=== PATIENT | male | born 1990 | race Two or more races ===

== ENCOUNTER 2017-03-20 02:26 | Inpatient (IN) | payer BC ==
[~2017-03-20] VITALS: Ht 177.8 cm; Wt 86.2 kg
[2017-03-20 04:30] VITALS: BP 136/88
[2017-03-20] MEDS ORDERED: CLINDAMYCIN HC150 MG ORAL (04:57)
[2017-03-20 08:07] VITALS: BP 140/77
[2017-03-20] MEDS: cefTRIAXone 1 GM in D5W 55 ML IVPB SCH (08:35)
[2017-03-20 09:19] LABS: BASOPHILS % (AUTO) 0.7 % (0.0-2.0); EOSINOPHILS % (AUTO) 5.1 % (0.0-3.0); LYMPHOCYTES % (AUTO) 18.7 % (20.0-45.0); MEAN CORPUSCULAR HEMOGLOBIN 29.4 PG (27.0-31.0); MEAN CORPUSCULAR VOLUME 86 FL (80-99); MEAN PLATELET VOLUME 7.4 FL (6.5-10.1); MONOCYTES % (AUTO) 7.9 % (1.0-10.0); NEUTROPHILS % (AUTO) 67.5 % (45.0-75.0); PLATELET COUNT 237 K/UL (150-450); WHITE BLOOD COUNT 6.9 K/UL (4.8-10.8)
[2017-03-20 09:41] LABS: ALANINE AMINOTRANSFERASE 36 U/L (3-41); ALBUMIN/GLOBULIN RATIO 1.4 (1.0-2.7); ANION GAP 14 (5-15); ASPARTATE AMINO TRANSFERASE 20 U/L (5-40); CALCIUM 9.4 mg/dL (8.6-10.2); CARBON DIOXIDE 24 mEQ/L (20-30); CHLORIDE 101 mEQ/L (98-107); CREATININE 0.7 mg/dL (0.7-1.2); GLOMERULAR FILTRATION RATE > 60 mL/min (>60); HEMOLYSIS 0; MAGNESIUM 2.2 mg/dL (1.7-2.5); PHOSPHORUS 2.8 mg/dL (2.5-4.8); POTASSIUM 3.6 mEQ/L (3.4-4.9); SODIUM 139 mEQ/L (135-145); TOTAL PROTEIN 7.2 g/dL (6.6-8.7)
[2017-03-20] MEDS ORDERED: Vancomycin 1.5 GM/D5W 250ML IVPB ONE (10:00)
[2017-03-20 11:59] VITALS: BP 124/83
--- NOTE | 2017-03-20 12:57 | History & Physical ---
History and Physical History & Physicial Dictated for Int Med-Dr Brink no. [id number]. DUGLAS EVANS Mar 20, 2017 12:57
[2017-03-20] MEDS: Sertraline 100mg tab ORAL SCH (13:31)
[2017-03-20] MEDS: Heparin 5000 units/ml inj SUBQ SCH ×2 (13:32→21:56)
--- NOTE | 2017-03-20 13:46 | Wound Care Consultation ---
Wound Assessment Wound Assessment #1: Wound Number: #1 Wound Present on Admission: Yes New Wound: No Status Change of Wound: No Wound Location Body Site Modif: right, lower, lateral Wound Location Body Site: leg Wound Type: other Laura Test: Does not Laura Wound Thickness: Full Thickness Wound Length: 3.0 Wound Width: 2.0 Wound Depth: utd Percent of Wound Black/Brown: 100 Wound Drainage Description: Serosanguineous Wound Drainage Amount: Moderate Wound Drainage Odor: None/Absent Tissue Surrounding Wound: Indurated Wound General Appearance: Blackened, Draining, Necrotic Wound Assessment #2: Wound Number: #2 Wound Present on Admission: Yes New Wound: No Status Change of Wound: No Wound Location Body Site Modif: right, lower, anterior Wound Location Body Site: leg Wound Type: blister - open Laura Test: Does not Laura Wound Thickness: Partial Thickness Wound Length: 3.5 Wound Width: 2.5 Wound Depth: less than 0.1 Percent of Wound [place]/Red: 100 Wound Drainage Description: Serosanguineous Wound Drainage Amount: Scant Wound Drainage Odor: None/Absent Tissue Surrounding Wound: Erythemic Wound General Appearance: Reddened, Draining Wound Assessment #3: Wound Number: #3 Wound Present on Admission: Yes New Wound: No Status Change of Wound: No Wound Location Body Site Modif: right, lower, medial Wound Location Body Site: leg Wound Type: blister - open Laura Test: Does not Laura Wound Thickness: Partial Thickness Wound Length: 3.5 Wound Width: 2.5 Wound Depth: less than 0.1 Percent of Wound [place]/Red: 100 Wound Drainage Description: Serosanguineous Wound Drainage Amount: Scant Wound Drainage Odor: None/Absent Tissue Surrounding Wound: Erythemic Wound General Appearance: Reddened, Draining Wound Comment #1 Right lower lateral leg open necrotic wound. Pt stated that he had a spider bite #2 Right lower anterior leg Open blister #3 Right lower medial leg Open blister Recommendation -Right lower lateral leg open necrotic wound. Pt stated that he had a spider bite, Right lower anterior leg Open blister and Right lower medial leg Open blister Cleanse with saline, pat dry, apply Xeroform gauze, cover with bordered gauze daily and PRN soiled/dislodged -Keep clean and dry -Turn and reposition -Optimize nutrition -Offload both heels -Assess and f/u accordingly for any changes CONCEPCION GAMBOA RN Mar 20, 2017 13:46
[2017-03-20 16:11] VITALS: BP 128/79
[2017-03-20] MEDS: Vancomycin 1250mg/D5W 250ml 250 ML IVPB SCH (18:04)
--- NOTE | 2017-03-20 19:38 | Consultation ---
History of Present Illness Present Illness Allergies: Coded Allergies: LAMOTRIGINE (Verified Allergy, Unknown, 03/20/17) SULFA (SULFONAMIDE ANTIBIOTICS) (Verified Allergy, Unknown, 03/20/17) Medication History Scheduled Clindamycin Hcl* (Clindamycin Hcl*), 300 MG ORAL FOUR TIMES A DAY, (Reported) Patient History Healthcare decision maker Resuscitation status Advanced Directive on File Physical Exam Last 24 Hour Vital Signs Date Time Temp Pulse Resp B/P Pulse Ox O2 Delivery O2 Flow Rate FiO2 03/20/17 16:11 97.6 82 20 128/79 98 Room Air 03/20/17 11:59 97.0 79 20 124/83 98 Room Air 03/20/17 08:07 96.8 80 18 140/77 99 Room Air 03/20/17 04:30 96.8 75 18 136/88 98 Room Air Laboratory Tests Test 03/20/17 08:30 White Blood Count 6.9 K/UL (4.8-10.8) Red Blood Count 4.30 M/UL (4.70-6.10) L Hemoglobin 12.6 G/DL (14.2-18.0) L Hematocrit 37.2 % (42.0-52.0) L Mean Corpuscular Volume 86 FL (80-99) Mean Corpuscular Hemoglobin 29.4 PG (27.0-31.0) Mean Corpuscular Hemoglobin Concent 34.0 G/DL (32.0-36.0) Red Cell Distribution Width 13.0 % (11.6-14.8) Platelet Count 237 K/UL (150-450) Mean Platelet Volume 7.4 FL (6.5-10.1) Neutrophils (%) (Auto) 67.5 % (45.0-75.0) Lymphocytes (%) (Auto) 18.7 % (20.0-45.0) L Monocytes (%) (Auto) 7.9 % (1.0-10.0) Eosinophils (%) (Auto) 5.1 % (0.0-3.0) H Basophils (%) (Auto) 0.7 % (0.0-2.0) Sodium Level 139 mEQ/L (135-145) Potassium Level 3.6 mEQ/L (3.4-4.9) Chloride Level 101 mEQ/L (98-107) Carbon Dioxide Level 24 mEQ/L (20-30) Anion Gap 14 (5-15) Blood Urea Nitrogen 9 mg/dL (7-23) Creatinine 0.7 mg/dL (0.7-1.2) Estimat Glomerular Filtration Rate > 60 mL/min (>60) Glucose Level 85 mg/dL (74-106) Calcium Level 9.4 mg/dL (8.6-10.2) Phosphorus Level 2.8 mg/dL (2.5-4.8) Magnesium Level 2.2 mg/dL (1.7-2.5) Total Bilirubin 0.6 mg/dL (0.0-1.2) Aspartate Amino Transf (AST/SGOT) 20 U/L (5-40) Alanine Aminotransferase (ALT/SGPT) 36 U/L (3-41) Alkaline Phosphatase 113 U/L (40-129) Total Protein 7.2 g/dL (6.6-8.7) Albumin 4.3 g/dL (3.5-5.2) Globulin 2.9 g/dL Albumin/Globulin Ratio 1.4 (1.0-2.7) Height (Feet): 5 Height (Inches): 10.00 Weight (Pounds): 190 Medications Current Medications Medications (Trade) Dose Ordered Sig/Helen Route PRN Reason Start Time Stop Time Status Last Admin Dose Admin Acetaminophen (Tylenol) 650 mg Q6H PRN ORAL Pain 1-3 /Temp > 100.5 03/20/17 07:30 04/19/17 07:29 Acetaminophen/ Hydrocodone Bitart ([place] 5/325) 1 tab Q6H PRN ORAL Severe Pain (Pain Scale 7-10) 03/20/17 07:30 03/27/17 07:29 Ceftriaxone Sodium/Dextrose (Rocephin/D5W) 55 ml @ 110 mls/hr Q24H IVPB 03/20/17 09:00 03/27/17 08:59 03/20/17 08:35 Heparin Sodium (Porcine) (Heparin 5000 units/ml) 5,000 units EVERY 8 HOURS SUBQ 03/20/17 14:00 04/19/17 13:59 03/20/17 13:32 Ondansetron HCl (Zofran) 4 mg Q4H PRN IVP Nausea & Vomiting 03/20/17 07:30 04/19/17 07:29 Quetiapine Fumarate (SEROquel) 25 mg BIDLS ORAL 03/20/17 13:00 04/19/17 12:59 03/20/17 17:27 Quetiapine Fumarate 100 mg 100 mg QHS ORAL 03/20/17 21:00 04/19/17 20:59 Sertraline HCl (Zoloft) 100 mg DAILY ORAL 03/20/17 13:00 04/19/17 12:59 03/20/17 13:31 Vancomycin HCl 1 ea 1 ea DAILY PRN MISC Per rx protocol 03/20/17 07:30 04/19/17 07:29 Vancomycin HCl/ Dextrose (Vancomycin 1250mg/D5W 250ml) 250 ml @ 166.667 mls/hr Q8HR@0200,1000,1800 IVPB 03/20/17 18:00 03/25/17 17:59 03/20/17 18:04 ALBINO KUMAR Mar 20, 2017 19:38
[2017-03-20 20:00] VITALS: BP 123/85
--- NOTE | 2017-03-20 21:46 | History and Physical Report ---
DATE OF ADMISSION: 03/20/[address] Brink. CHIEF COMPLAINT: The patient is a 26-year-old male, who presents with a chief complaint of pain and swelling of the right lower leg. HISTORY OF PRESENT ILLNESS: Began on 03/15/2017. The patient states he had an area of redness and swelling on the right calf. This grew progressively over the day. The patient went to [facility] emergency room. The patient had an abscess to the right calf, which was draining on its own. The patient was given oral clindamycin and was sent home. The patient states pain and swelling of the right calf increased. The patient states area of redness was expanding. The patient presented again to [facility] on 03/19/2017. The patient was noted to fail oral clindamycin therapy. The patient was transferred to [facility] for insurance purposes. The patient is admitted for right lower extremity cellulitis and abscess. PAST MEDICAL HISTORY: Significant for bipolar depression. PAST SURGICAL HISTORY: The patient denies. CURRENT MEDICATIONS: 1. Clindamycin as above. 2. Zoloft 100 mg one tablet p.o. daily. 3. Seroquel 25 mg twice daily and 100 mg p.o. at bedtime. ALLERGIES: Sulfa and Lamictal. SOCIAL HISTORY: The patient is single and is currently unemployed. The patient admits to intravenous heroin use of 1 g daily. The patient last used heroin on 03/15/2017. The patient also admits to intravenous methamphetamine use of 0.5 g daily. The patient last used methamphetamine on 03/15/2017. The patient admits to tobacco use of one-half pack per day. The patient denies alcohol use. REVIEW OF SYSTEMS: Constitutional: The patient denies weight loss or weight gain. The patient denies fevers or chills. HEENT: The patient denies ear or throat pain. The patient denies headache. Cardiovascular: The patient denies palpitations or chest pain. Chest: The patient denies wheeze or shortness of breath. Abdomen: The patient denies nausea, vomiting, diarrhea, or constipation. Genitourinary: The patient denies dysuria or increased frequency of urination. Neuromuscular: The patient complains of right lower extremity swelling, erythema, and pain as above. The patient denies seizures or generalized weakness. PHYSICAL EXAMINATION: VITAL SIGNS: Temperature 96.8 degrees, respirations 18, pulse 75, and blood pressure 136/88. GENERAL: The patient is well-developed and well-nourished male, in no apparent distress. HEENT: Eyes, pupils are equal and responsive to light and accommodation. Extraocular movements are intact. NECK: Supple without lymphadenopathy. CHEST: Lungs are clear to auscultation bilaterally without wheezes or rales. CARDIOVASCULAR: Regular rate. S1 and S2 are normal without murmurs, rubs, or gallops. ABDOMEN: Soft, nontender, and nondistended. Positive bowel sounds. No evidence of hepatosplenomegaly. Currently, no rebound or guarding noted. EXTREMITIES: Negative for clubbing, cyanosis, or edema. Area of erythema on the right calf approximately 15 cm in diameter. There are two areas of draining abscesses on the calf. Otherwise, extremities are without clubbing, cyanosis, or edema. RECTAL: Refused. GENITALIA: Refused. NEUROLOGIC: Cranial nerves II through XII are grossly intact without focal deficits. Motor strength is 5/5 bilaterally. Deep tendon reflexes are 2+ plantar. LABORATORY STUDIES: From [place] WBC 7.9, hemoglobin 11.9, hematocrit 34.4, and platelets 319,000. Sodium 135, potassium 3.5, chloride 103, CO2 23, BUN 10, creatinine 0.72, and glucose 91. ASSESSMENT: This is a 26-year-old male. 1. Abscess to the right calf. 2. Right lower extremity cellulitis. 3. Opiate dependence. 4. . 5. Methamphetamine dependence. 6. Bipolar depression. TREATMENT: 1. Abscess/cellulitis to the right lower extremity. The patient has been started empirically on intravenous ceftriaxone and vancomycin. The patient will require coverage for methicillin-resistant Staphylococcus aureus as the patient has a history of intravenous drug use in the recent past. Wound cultures are pending. 2. Bipolar depression. The patient has been placed on Zoloft and Seroquel as above. 3. Opiate dependence/withdrawal. The patient is requesting Subutex therapy at this time. Vikash Lane M.D. DR: JARON JOB#: [id number] CC:
[2017-03-21] VITALS: BP 118/79
[2017-03-21] MEDS: Vancomycin 1250mg/D5W 250ml 250 ML IVPB SCH ×3 (01:48→17:20)
[2017-03-21 04:00] VITALS: BP 130/72
[2017-03-21] MEDS: Heparin 5000 units/ml inj SUBQ SCH ×3 (05:26→21:12)
[2017-03-21 07:14] LABS: BASOPHILS % (AUTO) 1.2 % (0.0-2.0); EOSINOPHILS % (AUTO) 8.5 % (0.0-3.0); MEAN CORPUSCULAR HEMOGLOBIN 29.1 PG (27.0-31.0); MEAN CORPUSCULAR HGB CONC 33.7 G/DL (32.0-36.0); MEAN CORPUSCULAR VOLUME 87 FL (80-99); MEAN PLATELET VOLUME 7.4 FL (6.5-10.1); MONOCYTES % (AUTO) 9.6 % (1.0-10.0); NEUTROPHILS % (AUTO) 49.7 % (45.0-75.0); PLATELET COUNT 266 K/UL (150-450); RED BLOOD COUNT 4.47 M/UL (4.70-6.10); RED CELL DISTRIBUTION WIDTH 13.2 % (11.6-14.8); WHITE BLOOD COUNT 5.7 K/UL (4.8-10.8)
[2017-03-21 07:41] LABS: ANION GAP 12 (5-15); CALCIUM 9.4 mg/dL (8.6-10.2); CARBON DIOXIDE 24 mEQ/L (20-30); CHLORIDE 104 mEQ/L (98-107); CREATININE 0.8 mg/dL (0.7-1.2); GLOMERULAR FILTRATION RATE > 60 mL/min (>60); HEMOLYSIS 4; POTASSIUM 3.6 mEQ/L (3.4-4.9); SODIUM 140 mEQ/L (135-145)
[2017-03-21 08:00] VITALS: BP 128/68
[2017-03-21] MEDS: Sertraline 100mg tab ORAL SCH (09:04)
[2017-03-21] MEDS: cefTRIAXone 1 GM in D5W 55 ML IVPB SCH (09:04)
[2017-03-21 12:24] VITALS: BP 125/62
[2017-03-21 15:51] VITALS: BP 131/64
[2017-03-21] MEDS ORDERED: Tubing IV Secondary IV ONE (17:16)
[2017-03-21] MEDS ORDERED: NS 275ml ONE (17:16)
--- NOTE | 2017-03-21 19:34 | Internal Med Progress Note ---
Subjective Date of Service: Mar 21, 2017 Physician Name Duglas Evans Attending Physician Dave Brink MD Current Medications Medications (Trade) Dose Ordered Sig/Helen Route PRN Reason Start Time Stop Time Status Last Admin Dose Admin Acetaminophen (Tylenol) 650 mg Q6H PRN ORAL Pain 1-3 /Temp > 100.5 03/20/17 07:30 04/19/17 07:29 Acetaminophen/ Hydrocodone Bitart ([place] 5/325) 1 tab Q6H PRN ORAL Severe Pain (Pain Scale 7-10) 03/20/17 07:30 03/27/17 07:29 Ceftriaxone Sodium/Dextrose (Rocephin/D5W) 55 ml @ 110 mls/hr Q24H IVPB 03/20/17 09:00 03/27/17 08:59 03/21/17 09:04 Heparin Sodium (Porcine) (Heparin 5000 units/ml) 5,000 units EVERY 8 HOURS SUBQ 03/20/17 14:00 04/19/17 13:59 03/21/17 13:04 Ondansetron HCl (Zofran) 4 mg Q4H PRN IVP Nausea & Vomiting 03/20/17 07:30 04/19/17 07:29 Quetiapine Fumarate (SEROquel) 25 mg BIDLS ORAL 03/20/17 13:00 04/19/17 12:59 03/21/17 17:19 Quetiapine Fumarate 100 mg 100 mg QHS ORAL 03/20/17 21:00 04/19/17 20:59 03/20/17 20:51 Sertraline HCl (Zoloft) 100 mg DAILY ORAL 03/20/17 13:00 04/19/17 12:59 03/21/17 09:04 Vancomycin HCl 1 ea 1 ea DAILY PRN MISC Per rx protocol 03/20/17 07:30 04/19/17 07:29 Vancomycin HCl/ Dextrose (Vancomycin 1250mg/D5W 250ml) 250 ml @ 166.667 mls/hr Q8HR@0200,1000,1800 IVPB 03/20/17 18:00 03/25/17 17:59 03/21/17 17:20 Allergies: Coded Allergies: LAMOTRIGINE (Verified Allergy, Unknown, 03/20/17) SULFA (SULFONAMIDE ANTIBIOTICS) (Verified Allergy, Unknown, 03/20/17) ROS Limited/Unobtainable: No Constitutional: Reports: no symptoms HEENT: Reports: no symptoms Cardiovascular: Reports: no symptoms Respiratory: Reports: no symptoms Gastrointestinal/Abdominal: Reports: no symptoms Genitourinary: Reports: no symptoms Neurologic/Psychiatric: Reports: no symptoms Subjective 26 YO M admitted with abscess/cellulitis right calf. Cover for Int Дмитрий-Dr Brink. Objective Last Vital Signs Date Time Temp Pulse Resp B/P Pulse Ox O2 Delivery O2 Flow Rate FiO2 03/21/17 15:51 98.2 72 21 131/64 100 Room Air General Appearance: WD/WN, no apparent distress, alert EENT: PERRL/EOMI, normal ENT inspection, TMs normal Neck: non-tender, normal alignment, supple, normal inspection Cardiovascular: normal peripheral pulses, normal rate, regular rhythm, no gallop/murmur, no JVD Respiratory/Chest: chest wall non-tender, lungs clear, normal breath sounds, no respiratory distress, no accessory muscle use Abdomen: normal bowel sounds, non tender, soft, no organomegaly, no mass 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 Skin: normal pigmentation, warm/dry, other - erythema right calf Laboratory Tests Test 03/21/17 06:10 03/21/17 08:45 White Blood Count 5.7 K/UL (4.8-10.8) Red Blood Count 4.47 M/UL (4.70-6.10) L Hemoglobin 13.0 G/DL (14.2-18.0) L Hematocrit 38.7 % (42.0-52.0) L Mean Corpuscular Volume 87 FL (80-99) Mean Corpuscular Hemoglobin 29.1 PG (27.0-31.0) Mean Corpuscular Hemoglobin Concent 33.7 G/DL (32.0-36.0) Red Cell Distribution Width 13.2 % (11.6-14.8) Platelet Count 266 K/UL (150-450) Mean Platelet Volume 7.4 FL (6.5-10.1) Neutrophils (%) (Auto) 49.7 % (45.0-75.0) Lymphocytes (%) (Auto) 31.0 % (20.0-45.0) Monocytes (%) (Auto) 9.6 % (1.0-10.0) Eosinophils (%) (Auto) 8.5 % (0.0-3.0) H Basophils (%) (Auto) 1.2 % (0.0-2.0) Sodium Level 140 mEQ/L (135-145) Potassium Level 3.6 mEQ/L (3.4-4.9) Chloride Level 104 mEQ/L (98-107) Carbon Dioxide Level 24 mEQ/L (20-30) Anion Gap 12 (5-15) Blood Urea Nitrogen 8 mg/dL (7-23) Creatinine 0.8 mg/dL (0.7-1.2) Estimat Glomerular Filtration Rate > 60 mL/min (>60) Glucose Level 88 mg/dL (74-106) Calcium Level 9.4 mg/dL (8.6-10.2) Vancomycin Level Trough 10.0 ug/mL (5.0-12.0) Microbiology Date/Time Source Procedure Growth Status 03/20/17 04:30 Leg Right Gram Stain - Final Resulted 03/20/17 04:30 Wound Culture - Preliminary Staphylococcus Aureus Resulted Intake and Output 03/20/17 03/21/17 19:00 07:00 Intake Total 1315 ml 500.000 ml Balance 1315 ml 500.000 ml Intake Oral 1010 ml IV Total 305 ml 500.000 ml # Voids 3 2 Assessment/Plan Problem List: (1) Abscess of right lower leg Assessment & Plan: Staph aureus. Await sensitivities. Cont vanco and ceftriaxone. (2) Opiate dependence (3) Opiate withdrawal Assessment & Plan: Await subutex approval by pharmacy (4) Methamphetamine abuse (5) Bipolar depression Assessment & Plan: Continue zoloft and seroquel. (6) Cellulitis of right leg Assessment & Plan: Cont vanco and ceftriaxone. Status: progressing DUGLAS EVANS Mar 21, 2017 19:34
--- NOTE | 2017-03-21 19:41 | Pulmonology Progress Note ---
Assessment/Plan Problems: (1) Abscess of right lower leg (2) Cellulitis of right leg (3) Methamphetamine abuse (4) Opiate withdrawal (5) Bipolar depression Assessment/Plan iv abx wound care symptomatic treatment f/u ID recommendations Subjective ROS Limited/Unobtainable: No Allergies: Coded Allergies: LAMOTRIGINE (Verified Allergy, Unknown, 03/20/17) SULFA (SULFONAMIDE ANTIBIOTICS) (Verified Allergy, Unknown, 03/20/17) Objective Last 24 Hour Vital Signs Date Time Temp Pulse Resp B/P Pulse Ox O2 Delivery O2 Flow Rate FiO2 03/21/17 15:51 98.2 72 21 131/64 100 Room Air 03/21/17 12:24 97.8 70 18 125/62 100 Room Air 03/21/17 08:00 98.0 70 18 128/68 100 Room Air 03/21/17 04:00 97.3 62 20 130/72 96 03/21/17 00:00 98.4 71 18 118/79 100 Room Air 03/20/17 20:00 98.1 67 20 123/85 99 Room Air Intake and Output 03/20/17 03/21/17 19:00 07:00 Intake Total 1315 ml 500.000 ml Balance 1315 ml 500.000 ml Intake Oral 1010 ml IV Total 305 ml 500.000 ml # Voids 3 2 General Appearance: WD/WN HEENT: normocephalic, atraumatic Respiratory/Chest: chest wall non-tender, lungs clear Cardiovascular: normal peripheral pulses, normal rate Abdomen: normal bowel sounds, soft, non tender Genitourinary: normal external genitalia Extremities: no cyanosis Skin: no rash 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 Microbiology Date/Time Source Procedure Growth Status 03/20/17 04:30 Leg Right Gram Stain - Final Resulted 03/20/17 04:30 Wound Culture - Preliminary Staphylococcus Aureus Resulted Laboratory Tests 03/21/17 06:10: White Blood Count 5.7, Red Blood Count 4.47L, Hemoglobin 13.0L, Hematocrit 38.7L , Mean Corpuscular Volume 87, Mean Corpuscular Hemoglobin 29.1, Mean Corpuscular Hemoglobin Concent 33.7, Red Cell Distribution Width 13.2, Platelet Count 266, Mean Platelet Volume 7.4, Neutrophils (%) (Auto) 49.7, Lymphocytes (% ) (Auto) 31.0, Monocytes (%) (Auto) 9.6, Eosinophils (%) (Auto) 8.5H, Basophils (%) (Auto) 1.2, Sodium Level 140, Potassium Level 3.6, Chloride Level 104, Carbon Dioxide Level 24, Anion Gap 12, Blood Urea Nitrogen 8, Creatinine 0.8, Estimat Glomerular Filtration Rate > 60, Glucose Level 88, Calcium Level 9.4 03/21/17 08:45: Vancomycin Level Trough 10.0 Current Medications Medications (Trade) Dose Ordered Sig/Helen Route PRN Reason Start Time Stop Time Status Last Admin Dose Admin Acetaminophen (Tylenol) 650 mg Q6H PRN ORAL Pain 1-3 /Temp > 100.5 03/20/17 07:30 04/19/17 07:29 Acetaminophen/ Hydrocodone Bitart ([place] 5/325) 1 tab Q6H PRN ORAL Severe Pain (Pain Scale 7-10) 03/20/17 07:30 03/27/17 07:29 Ceftriaxone Sodium/Dextrose (Rocephin/D5W) 55 ml @ 110 mls/hr Q24H IVPB 03/20/17 09:00 03/27/17 08:59 03/21/17 09:04 Heparin Sodium (Porcine) (Heparin 5000 units/ml) 5,000 units EVERY 8 HOURS SUBQ 03/20/17 14:00 04/19/17 13:59 03/21/17 13:04 Ondansetron HCl (Zofran) 4 mg Q4H PRN IVP Nausea & Vomiting 03/20/17 07:30 04/19/17 07:29 Quetiapine Fumarate (SEROquel) 25 mg BIDLS ORAL 03/20/17 13:00 04/19/17 12:59 03/21/17 17:19 Quetiapine Fumarate 100 mg 100 mg QHS ORAL 03/20/17 21:00 04/19/17 20:59 03/20/17 20:51 Sertraline HCl (Zoloft) 100 mg DAILY ORAL 03/20/17 13:00 04/19/17 12:59 03/21/17 09:04 Vancomycin HCl 1 ea 1 ea DAILY PRN MISC Per rx protocol 03/20/17 07:30 04/19/17 07:29 Vancomycin HCl/ Dextrose (Vancomycin 1250mg/D5W 250ml) 250 ml @ 166.667 mls/hr Q8HR@0200,1000,1800 IVPB 03/20/17 18:00 03/25/17 17:59 03/21/17 17:20 ALBINO KUMAR Mar 21, 2017 19:41
[2017-03-21 20:30] VITALS: BP 128/73
[2017-03-22 00:22] VITALS: BP 128/72
[2017-03-22] MEDS: Vancomycin 1250mg/D5W 250ml 250 ML IVPB SCH ×3 (02:09→17:37)
[2017-03-22 04:22] VITALS: BP 130/85
[2017-03-22] MEDS: Heparin 5000 units/ml inj SUBQ SCH ×3 (05:49→21:39)
[2017-03-22 07:46] LABS: ANION GAP 12 (5-15); CALCIUM 9.1 mg/dL (8.6-10.2); CARBON DIOXIDE 23 mEQ/L (20-30); CHLORIDE 105 mEQ/L (98-107); CREATININE 0.7 mg/dL (0.7-1.2); GLOMERULAR FILTRATION RATE > 60 mL/min (>60); HEMOLYSIS 1; POTASSIUM 3.6 mEQ/L (3.4-4.9); SODIUM 140 mEQ/L (135-145)
[2017-03-22 08:04] LABS: BASOPHILS % (AUTO) 1.9 % (0.0-2.0); EOSINOPHILS % (AUTO) 6.8 % (0.0-3.0); LYMPHOCYTES % (AUTO) 31.1 % (20.0-45.0); MEAN CORPUSCULAR HEMOGLOBIN 28.9 PG (27.0-31.0); MEAN CORPUSCULAR HGB CONC 32.9 G/DL (32.0-36.0); MEAN CORPUSCULAR VOLUME 88 FL (80-99); MEAN PLATELET VOLUME 7.4 FL (6.5-10.1); MONOCYTES % (AUTO) 9.2 % (1.0-10.0); PLATELET COUNT 283 K/UL (150-450); RED BLOOD COUNT 4.52 M/UL (4.70-6.10); RED CELL DISTRIBUTION WIDTH 13.4 % (11.6-14.8); WHITE BLOOD COUNT 6.3 K/UL (4.8-10.8)
[2017-03-22] MEDS: Sertraline 100mg tab ORAL SCH (08:25)
[2017-03-22] MEDS: cefTRIAXone 1 GM in D5W 55 ML IVPB SCH (08:25)
[2017-03-22 08:43] VITALS: BP 131/77
--- NOTE | 2017-03-22 11:40 | Consultation ---
Consult Note Consult Note ID CONSULT: Dict# [id number] Assessment/Plan ASSESSMENT: 26 y/o male with: // RLE abscess / cellulitis - improving, WCx S.aureus ( sensi pending ) - SP spontaneous drainage, failed PO clindamycin - spontaneous onset per pt. Denies injection, bite or trauma - doppler neg DVT // Afebrile without leukocytosis // Polysubstance abuse - IV heroin, meth, tob // Bipolar disorder // Sulfa allergy // Full Code PLAN: - continue IV vancomycin, rocephin d# 3 / 7 pending cultures, ok to DC on PO doxy if MRSA or PO keflex if MSSA - check HIV, hepatitis panel - f/u cultures - monitor CBC, temperatures - wound care Thanks! Will follow JULIUS LORD Mar 22, 2017 11:40
[2017-03-22 12:00] VITALS: BP 145/87
[2017-03-22 16:00] VITALS: BP 130/76
[2017-03-22] MEDS: Norco 5mg/325mg tab ORAL PRN (16:29)
--- NOTE | 2017-03-22 18:20 | Internal Med Progress Note ---
Subjective Date of Service: Mar 22, 2017 Physician Name Vikash Evans Attending Physician Dave Brink MD Current Medications Medications (Trade) Dose Ordered Sig/Helen Route PRN Reason Start Time Stop Time Status Last Admin Dose Admin Acetaminophen (Tylenol) 650 mg Q6H PRN ORAL Pain 1-3 /Temp > 100.5 03/20/17 07:30 04/19/17 07:29 Acetaminophen/ Hydrocodone Bitart ([place] 5/325) 1 tab Q6H PRN ORAL Severe Pain (Pain Scale 7-10) 03/20/17 07:30 03/27/17 07:29 03/22/17 16:29 Ceftriaxone Sodium/Dextrose (Rocephin/D5W) 55 ml @ 110 mls/hr Q24H IVPB 03/20/17 09:00 03/27/17 08:59 03/22/17 08:25 Heparin Sodium (Porcine) (Heparin 5000 units/ml) 5,000 units EVERY 8 HOURS SUBQ 03/20/17 14:00 04/19/17 13:59 03/22/17 14:15 Ondansetron HCl (Zofran) 4 mg Q4H PRN IVP Nausea & Vomiting 03/20/17 07:30 04/19/17 07:29 Quetiapine Fumarate (SEROquel) 25 mg BIDLS ORAL 03/20/17 13:00 04/19/17 12:59 03/22/17 16:32 Quetiapine Fumarate 100 mg 100 mg QHS ORAL 03/20/17 21:00 04/19/17 20:59 03/21/17 21:20 Sertraline HCl (Zoloft) 100 mg DAILY ORAL 03/20/17 13:00 04/19/17 12:59 03/22/17 08:25 Vancomycin HCl 1 ea 1 ea DAILY PRN MISC Per rx protocol 03/20/17 07:30 04/19/17 07:29 Vancomycin HCl/ Dextrose (Vancomycin 1250mg/D5W 250ml) 250 ml @ 166.667 mls/hr Q8HR@0200,1000,1800 IVPB 03/20/17 18:00 03/25/17 17:59 03/22/17 17:37 Allergies: Coded Allergies: LAMOTRIGINE (Verified Allergy, Unknown, 03/20/17) SULFA (SULFONAMIDE ANTIBIOTICS) (Verified Allergy, Unknown, 03/20/17) ROS Limited/Unobtainable: No Constitutional: Reports: chills, fever HEENT: Reports: no symptoms Cardiovascular: Reports: no symptoms Respiratory: Reports: no symptoms Gastrointestinal/Abdominal: Reports: diarrhea, nausea, vomiting Genitourinary: Reports: no symptoms Neurologic/Psychiatric: Reports: no symptoms Subjective 26 YO M admitted with abscess/cellulitis right calf. Cover for Int Med-Dr Brink.. C/O opiate withdrawl: Fever, Chills,nausea,vomiting, diarrhea Objective Last Vital Signs Date Time Temp Pulse Resp B/P Pulse Ox O2 Delivery O2 Flow Rate FiO2 03/22/17 16:00 97.3 68 20 130/76 96 Room Air Laboratory Tests Test 03/22/17 04:00 03/22/17 06:10 White Blood Count 6.3 K/UL (4.8-10.8) Red Blood Count 4.52 M/UL (4.70-6.10) L Hemoglobin 13.0 G/DL (14.2-18.0) L Hematocrit 39.7 % (42.0-52.0) L Mean Corpuscular Volume 88 FL (80-99) Mean Corpuscular Hemoglobin 28.9 PG (27.0-31.0) Mean Corpuscular Hemoglobin Concent 32.9 G/DL (32.0-36.0) Red Cell Distribution Width 13.4 % (11.6-14.8) Platelet Count 283 K/UL (150-450) Mean Platelet Volume 7.4 FL (6.5-10.1) Neutrophils (%) (Auto) 51.0 % (45.0-75.0) Lymphocytes (%) (Auto) 31.1 % (20.0-45.0) Monocytes (%) (Auto) 9.2 % (1.0-10.0) Eosinophils (%) (Auto) 6.8 % (0.0-3.0) H Basophils (%) (Auto) 1.9 % (0.0-2.0) Sodium Level 140 mEQ/L (135-145) Potassium Level 3.6 mEQ/L (3.4-4.9) Chloride Level 105 mEQ/L (98-107) Carbon Dioxide Level 23 mEQ/L (20-30) Anion Gap 12 (5-15) Blood Urea Nitrogen 9 mg/dL (7-23) Creatinine 0.7 mg/dL (0.7-1.2) Estimat Glomerular Filtration Rate > 60 mL/min (>60) Glucose Level 80 mg/dL (74-106) Calcium Level 9.1 mg/dL (8.6-10.2) Hepatitis B Surface Antigen Pending Hepatitis B Surface Antibody Pending Hepatitis B Core Total Antibody Pending Hepatitis C Antibody Pending HIV (1&2) Antibody Rapid Negative (NEGATIVE) Microbiology Date/Time Source Procedure Growth Status 03/20/17 08:45 Blood Blood Culture - Preliminary NO GROWTH AFTER 24 HOURS Resulted 03/20/17 08:30 Blood Blood Culture - Preliminary NO GROWTH AFTER 24 HOURS Resulted 03/20/17 04:30 Leg Right Gram Stain - Final Resulted 03/20/17 04:30 Wound Culture - Preliminary Staphylococcus Aureus - Mrsa Resulted Intake and Output 03/21/17 03/22/17 19:00 07:00 Intake Total 1358.000 ml 240 ml Balance 1358.000 ml 240 ml Intake Oral 800 ml 240 ml IV Total 558.000 ml # Voids 3 1 # Bowel Movements 1 Objective General Appearance: WD/WN, no apparent distress, alert EENT: PERRL/EOMI, normal ENT inspection, TMs normal Neck: non-tender, normal alignment, supple, normal inspection Cardiovascular: normal peripheral pulses, normal rate, regular rhythm, no gallop/murmur, no JVD Respiratory/Chest: chest wall non-tender, lungs clear, normal breath sounds, no respiratory distress, no accessory muscle use Abdomen: normal bowel sounds, non tender, soft, no organomegaly, no mass 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 Await sensitivities. Cont vanco and ceftriaxone. (2) Opiate dependence (3) Opiate withdrawal Assessment & Plan: Start prn phenobarbital; Await subutex approval by pharmacy (4) Methamphetamine abuse (5) Bipolar depression Assessment & Plan: Continue zoloft and seroquel. (6) Cellulitis of right leg Assessment & Plan: Cont vanco and ceftriaxone. Status: progressing Assessment/Plan Transfer to [facility] detox when bed available. VIKASH EVANS Mar 22, 2017 18:20
[2017-03-22] MEDS ORDERED: PHENobarbital 32.4mg tab ORAL PRN (18:30)
[2017-03-22 20:00] VITALS: BP 136/77
--- NOTE | 2017-03-22 20:18 | Pulmonology Progress Note ---
Assessment/Plan Problems: (1) Abscess of right lower leg (2) Opiate dependence (3) Bipolar depression (4) Opiate withdrawal Assessment/Plan improving IV abx wound care f/u electrolytes Subjective ROS Limited/Unobtainable: No Interval Events: feeling better Allergies: Coded Allergies: LAMOTRIGINE (Verified Allergy, Unknown, 03/20/17) SULFA (SULFONAMIDE ANTIBIOTICS) (Verified Allergy, Unknown, 03/20/17) Objective Last 24 Hour Vital Signs Date Time Temp Pulse Resp B/P Pulse Ox O2 Delivery O2 Flow Rate FiO2 03/22/17 16:00 97.3 68 20 130/76 96 Room Air 03/22/17 12:00 97.9 84 19 145/87 95 Room Air 03/22/17 08:43 97.5 69 20 131/77 97 Room Air 03/22/17 04:22 97.9 70 19 130/85 96 Room Air 03/22/17 00:22 98.1 68 18 128/72 97 Room Air 03/21/17 20:30 97.9 66 19 128/73 97 Room Air Intake and Output 03/21/17 03/22/17 19:00 07:00 Intake Total 1358.000 ml 240 ml Balance 1358.000 ml 240 ml Intake Oral 800 ml 240 ml IV Total 558.000 ml # Voids 3 1 # Bowel Movements 1 Objective General Appearance: WD/WN HEENT: normocephalic Respiratory/Chest: chest wall non-tender, lungs clear Breasts: no masses Cardiovascular: normal peripheral pulses Abdomen: normal bowel sounds, soft, non tender Genitourinary: normal external genitalia Skin: no rash Microbiology Date/Time Source Procedure Growth Status 03/20/17 08:45 Blood Blood Culture - Preliminary NO GROWTH AFTER 24 HOURS Resulted 03/20/17 08:30 Blood Blood Culture - Preliminary NO GROWTH AFTER 24 HOURS Resulted 03/20/17 04:30 Leg Right Gram Stain - Final Resulted 03/20/17 04:30 Wound Culture - Preliminary Staphylococcus Aureus - Mrsa Resulted Laboratory Tests 03/22/17 04:00: White Blood Count 6.3, Red Blood Count 4.52L, Hemoglobin 13.0L, Hematocrit 39.7L , Mean Corpuscular Volume 88, Mean Corpuscular Hemoglobin 28.9, Mean Corpuscular Hemoglobin Concent 32.9, Red Cell Distribution Width 13.4, Platelet Count 283, Mean Platelet Volume 7.4, Neutrophils (%) (Auto) 51.0, Lymphocytes (% ) (Auto) 31.1, Monocytes (%) (Auto) 9.2, Eosinophils (%) (Auto) 6.8H, Basophils (%) (Auto) 1.9 03/22/17 06:10: Sodium Level 140, Potassium Level 3.6, Chloride Level 105, Carbon Dioxide Level 23, Anion Gap 12, Blood Urea Nitrogen 9, Creatinine 0.7, Estimat Glomerular Filtration Rate > 60, Glucose Level 80, Calcium Level 9.1, Hepatitis B Surface Antigen [Pending], Hepatitis B Surface Antibody [Pending], Hepatitis B Core Total Antibody [Pending], Hepatitis C Antibody [Pending], HIV (1&2) Antibody Rapid Negative Current Medications Medications (Trade) Dose Ordered Sig/Helen Route PRN Reason Start Time Stop Time Status Last Admin Dose Admin Acetaminophen (Tylenol) 650 mg Q6H PRN ORAL Pain 1-3 /Temp > 100.5 03/20/17 07:30 04/19/17 07:29 Acetaminophen/ Hydrocodone Bitart ([place] 5/325) 1 tab Q6H PRN ORAL Severe Pain (Pain Scale 7-10) 03/20/17 07:30 03/27/17 07:29 03/22/17 16:29 Ceftriaxone Sodium/Dextrose (Rocephin/D5W) 55 ml @ 110 mls/hr Q24H IVPB 03/20/17 09:00 03/27/17 08:59 03/22/17 08:25 Heparin Sodium (Porcine) (Heparin 5000 units/ml) 5,000 units EVERY 8 HOURS SUBQ 03/20/17 14:00 04/19/17 13:59 03/22/17 14:15 Ondansetron HCl (Zofran) 4 mg Q4H PRN IVP Nausea & Vomiting 03/20/17 07:30 04/19/17 07:29 Phenobarbital (PHENobarbital) 32.4 mg Q4H PRN ORAL Restlessness 03/22/17 18:30 04/21/17 18:29 Quetiapine Fumarate (SEROquel) 25 mg BIDLS ORAL 03/20/17 13:00 04/19/17 12:59 03/22/17 16:32 Quetiapine Fumarate 100 mg 100 mg QHS ORAL 03/20/17 21:00 04/19/17 20:59 03/21/17 21:20 Sertraline HCl (Zoloft) 100 mg DAILY ORAL 03/20/17 13:00 04/19/17 12:59 03/22/17 08:25 Vancomycin HCl 1 ea 1 ea DAILY PRN MISC Per rx protocol 03/20/17 07:30 04/19/17 07:29 Vancomycin HCl/ Dextrose (Vancomycin 1250mg/D5W 250ml) 250 ml @ 166.667 mls/hr Q8HR@0200,1000,1800 IVPB 03/20/17 18:00 03/25/17 17:59 03/22/17 17:37 ALBINO KUMAR Mar 22, 2017 20:18
--- NOTE | 2017-03-22 22:16 | Consultation ---
DATE OF CONSULTATION: 03/22/2017 INFECTIOUS DISEASE CONSULTATION REQUESTING PHYSICIAN: Dave Brink M.D. REASON FOR CONSULTATION: Right leg abscess and cellulitis. HISTORY OF PRESENT ILLNESS: This is a 26-year-old male IV drug abuser, transferred from [place] on 03/20/2017 for ongoing treatment of right leg cellulitis and abscess. The patient originally presented to [place] on 03/15/2017 with right calf abscess status post spontaneous drainage. The patient denied bite, trauma and injection. He was discharged on oral clindamycin. The patient subsequently re-presented on 03/19/2017 with worsening and is now transferred to [facility] for ongoing care. He has been receiving IV vancomycin and Rocephin. He has been afebrile without leukocytosis. The wound cultures growing Staph aureus and sensitivities are pending. A Doppler ultrasound was negative for DVT. ID now consulted to assist in management. PAST MEDICAL HISTORY: Bipolar disorder. PAST SURGICAL HISTORY: None. MEDICATIONS: 1. Vancomycin. 2. Rocephin. 3. Seroquel. 4. Zoloft. 5. Subcutaneous heparin. ALLERGIES: 1. Sulfa. 2. Lamotrigine. SOCIAL HISTORY: The patient smokes half a pack a day and abuses IV heroin and methamphetamines. FAMILY HISTORY: Noncontributory. REVIEW OF SYSTEMS: As per history of present illness. Ten systems reviewed and all pertinent positives and negatives noted. PHYSICAL EXAMINATION: GENERAL: No apparent distress. Nontoxic appearing. VITAL SIGNS: Maximum temperature 98.4 degrees, blood pressure 131/77, heart rate in the 70s, respiratory rate 20, and saturating 97% on room air. CARDIOVASCULAR: Regular rate and rhythm. No murmurs. PULMONARY: Clear to auscultation bilaterally. ABDOMEN: Bowel sounds present. Soft, nondistended, and nontender. EXTREMITIES: No edema. Right calf ulcer with minimal induration, but no significant drainage. NEUROLOGICAL: Alert and oriented x3. Nonfocal. LABORATORY AND DIAGNOSTIC DATA: White blood cell count 6.3, hemoglobin 13 and platelets 287,000. Sodium 140, potassium 3.6, chloride 105, bicarbonate 23, BUN 9, and creatinine 0.7. Liver function tests within normal limits. Microbiology, 1. On 03/20/2017, blood culture no growth to date. 2. On 03/20/2017, wound culture 4+ staph aureus and sensitivity is pending. Imaging, 03/20/2017 bilateral lower extremity Doppler ultrasound negative for DVT. ASSESSMENT: 1. Right lower extremity abscess and cellulitis, now improving on IV antibiotics. Wound cultures growing Staph aureus with sensitivity pending. The patient had spontaneous drainage and failed oral clindamycin. The patient denies injection, bite or trauma. Doppler is negative for DVT. 2. Afebrile without leukocytosis. 3. Polysubstance abuse including intravenous heroin, intravenous methamphetamine and tobacco. 4. Bipolar disorder. 5. Sulfa allergies. 6. Full Code. PLAN: 1. Continue IV vancomycin and Rocephin day #3 of 7 pending cultures and okay to discharge on oral doxycycline if culture is methicillin resistant Staphylococcus aureus or oral Keflex if culture is methicillin-sensitive Staphylococcus aureus. 2. Check HIV and hepatitis panel. 3. Followup cultures. 4. Monitor CBC and temperatures. 5. Wound care. Thank you. We will follow. Cayetano Kohli M.D. DR: NADINE JOB#: [id number] CC: Sotero Goncalves M.D. Arash Alborzi, M.D
[2017-03-23] VITALS: BP 122/62
[2017-03-23] MEDS: Norco 5mg/325mg tab ORAL PRN ×3 (00:55→15:54)
[2017-03-23] MEDS: Vancomycin 1250mg/D5W 250ml 250 ML IVPB SCH ×4 (02:48→18:58)
[2017-03-23 04:00] VITALS: BP 120/69
[2017-03-23] MEDS: Heparin 5000 units/ml inj SUBQ SCH ×3 (05:36→20:58)
[2017-03-23 07:33] LABS: BASOPHILS % (AUTO) 1.4 % (0.0-2.0); EOSINOPHILS % (AUTO) 6.1 % (0.0-3.0); LYMPHOCYTES % (AUTO) 36.7 % (20.0-45.0); MEAN CORPUSCULAR HEMOGLOBIN 29.9 PG (27.0-31.0); MEAN CORPUSCULAR HGB CONC 34.1 G/DL (32.0-36.0); MEAN CORPUSCULAR VOLUME 88 FL (80-99); MEAN PLATELET VOLUME 7.2 FL (6.5-10.1); MONOCYTES % (AUTO) 8.1 % (1.0-10.0); NEUTROPHILS % (AUTO) 47.7 % (45.0-75.0); PLATELET COUNT 329 K/UL (150-450); RED BLOOD COUNT 4.48 M/UL (4.70-6.10); RED CELL DISTRIBUTION WIDTH 13.3 % (11.6-14.8); WHITE BLOOD COUNT 6.3 K/UL (4.8-10.8)
[2017-03-23 07:53] LABS: ANION GAP 12 (5-15); CALCIUM 8.9 mg/dL (8.6-10.2); CARBON DIOXIDE 23 mEQ/L (20-30); CHLORIDE 103 mEQ/L (98-107); CREATININE 0.7 mg/dL (0.7-1.2); GLOMERULAR FILTRATION RATE > 60 mL/min (>60); HEMOLYSIS 3; POTASSIUM 3.4 mEQ/L (3.4-4.9); SODIUM 138 mEQ/L (135-145)
[2017-03-23 08:59] VITALS: BP 127/77
[2017-03-23] MEDS: Sertraline 100mg tab ORAL SCH (09:21)
[2017-03-23] MEDS: cefTRIAXone 1 GM in D5W 55 ML IVPB SCH (09:21)
[2017-03-23 12:40] VITALS: BP 127/60
[2017-03-23 13:13] LABS: HEP B CORE AB TOTAL Negative (Negative)
[2017-03-23 16:30] VITALS: BP 133/77
[2017-03-23] MEDS ORDERED: NS 275ml ONE (16:30)
--- NOTE | 2017-03-23 16:34 | Pulmonology Progress Note ---
Assessment/Plan Problems: (1) Cellulitis of right leg (2) Abscess of right lower leg (3) Opiate withdrawal Assessment/Plan improving wound care IV abx check cultures dc planning Subjective Interval Events: improivng Allergies: Coded Allergies: LAMOTRIGINE (Verified Allergy, Unknown, 03/20/17) SULFA (SULFONAMIDE ANTIBIOTICS) (Verified Allergy, Unknown, 03/20/17) Objective Last 24 Hour Vital Signs Date Time Temp Pulse Resp B/P Pulse Ox O2 Delivery O2 Flow Rate FiO2 03/23/17 16:30 97.9 70 20 133/77 97 Room Air 03/23/17 12:40 97.0 82 20 127/60 97 Room Air 03/23/17 10:20 97.3 03/23/17 08:59 97.3 70 20 127/77 98 Room Air 03/23/17 04:00 97.0 60 20 120/69 96 Room Air 03/23/17 00:00 97.2 62 18 122/62 98 Room Air 03/22/17 20:00 97.9 60 20 136/77 96 Room Air Intake and Output 03/22/17 03/23/17 19:00 07:00 Intake Total 711.667 ml Balance 711.667 ml Intake Oral 240 ml IV Total 471.667 ml # Voids 2 # Bowel Movements 1 Objective General Appearance: WD/WN HEENT: normocephalic Respiratory/Chest: chest wall non-tender, lungs clear Breasts: no masses Cardiovascular: normal peripheral pulses Abdomen: normal bowel sounds, soft, non tender Genitourinary: normal external genitalia Skin: no rash Laboratory Tests 03/23/17 04:30: White Blood Count 6.3, Red Blood Count 4.48L, Hemoglobin 13.4L, Hematocrit 39.3L , Mean Corpuscular Volume 88, Mean Corpuscular Hemoglobin 29.9, Mean Corpuscular Hemoglobin Concent 34.1, Red Cell Distribution Width 13.3, Platelet Count 329, Mean Platelet Volume 7.2, Neutrophils (%) (Auto) 47.7, Lymphocytes (% ) (Auto) 36.7, Monocytes (%) (Auto) 8.1, Eosinophils (%) (Auto) 6.1H, Basophils (%) (Auto) 1.4, Sodium Level 138, Potassium Level 3.4, Chloride Level 103, Carbon Dioxide Level 23, Anion Gap 12, Blood Urea Nitrogen 9, Creatinine 0.7, Estimat Glomerular Filtration Rate > 60, Glucose Level 84, Calcium Level 8.9 Current Medications Medications (Trade) Dose Ordered Sig/Helen Route PRN Reason Start Time Stop Time Status Last Admin Dose Admin Acetaminophen (Tylenol) 650 mg Q6H PRN ORAL Pain 1-3 /Temp > 100.5 03/20/17 07:30 04/19/17 07:29 Acetaminophen/ Hydrocodone Bitart ([place] 5/325) 1 tab Q6H PRN ORAL Severe Pain (Pain Scale 7-10) 03/20/17 07:30 03/27/17 07:29 03/23/17 15:54 Ceftriaxone Sodium/Dextrose (Rocephin/D5W) 55 ml @ 110 mls/hr Q24H IVPB 03/20/17 09:00 03/27/17 08:59 03/23/17 09:21 Heparin Sodium (Porcine) (Heparin 5000 units/ml) 5,000 units EVERY 8 HOURS SUBQ 03/20/17 14:00 04/19/17 13:59 03/23/17 15:56 Ondansetron HCl (Zofran) 4 mg Q4H PRN IVP Nausea & Vomiting 03/20/17 07:30 04/19/17 07:29 Phenobarbital (PHENobarbital) 32.4 mg Q4H PRN ORAL Restlessness 03/22/17 18:30 04/21/17 18:29 Quetiapine Fumarate (SEROquel) 25 mg BIDLS ORAL 03/20/17 13:00 04/19/17 12:59 03/23/17 16:16 Quetiapine Fumarate 100 mg 100 mg QHS ORAL 03/20/17 21:00 04/19/17 20:59 03/22/17 21:39 Sertraline HCl (Zoloft) 100 mg DAILY ORAL 03/20/17 13:00 04/19/17 12:59 03/23/17 09:21 Vancomycin HCl 1 ea 1 ea DAILY PRN MISC Per rx protocol 03/20/17 07:30 04/19/17 07:29 Vancomycin HCl/ Dextrose (Vancomycin 1250mg/D5W 250ml) 250 ml @ 166.667 mls/hr Q8HR@0200,1000,1800 IVPB 03/20/17 18:00 03/25/17 17:59 03/23/17 10:22 ALBINO KUMAR Mar 23, 2017 16:34
--- NOTE | 2017-03-23 17:25 | Internal Med Progress Note ---
Subjective Date of Service: Mar 23, 2017 Physician Name ArianaDuglas Attending Physician Dave Brink MD Current Medications Medications (Trade) Dose Ordered Sig/Helen Route PRN Reason Start Time Stop Time Status Last Admin Dose Admin Acetaminophen (Tylenol) 650 mg Q6H PRN ORAL Pain 1-3 /Temp > 100.5 03/20/17 07:30 04/19/17 07:29 Acetaminophen/ Hydrocodone Bitart ([place] 5/325) 1 tab Q6H PRN ORAL Severe Pain (Pain Scale 7-10) 03/20/17 07:30 03/27/17 07:29 03/23/17 15:54 Ceftriaxone Sodium/Dextrose (Rocephin/D5W) 55 ml @ 110 mls/hr Q24H IVPB 03/20/17 09:00 03/27/17 08:59 03/23/17 09:21 Heparin Sodium (Porcine) (Heparin 5000 units/ml) 5,000 units EVERY 8 HOURS SUBQ 03/20/17 14:00 04/19/17 13:59 03/23/17 15:56 Ondansetron HCl (Zofran) 4 mg Q4H PRN IVP Nausea & Vomiting 03/20/17 07:30 04/19/17 07:29 Phenobarbital (PHENobarbital) 32.4 mg Q4H PRN ORAL Restlessness 03/22/17 18:30 04/21/17 18:29 Quetiapine Fumarate (SEROquel) 25 mg BIDLS ORAL 03/20/17 13:00 04/19/17 12:59 03/23/17 16:16 Quetiapine Fumarate 100 mg 100 mg QHS ORAL 03/20/17 21:00 04/19/17 20:59 03/22/17 21:39 Sertraline HCl (Zoloft) 100 mg DAILY ORAL 03/20/17 13:00 04/19/17 12:59 03/23/17 09:21 Vancomycin HCl 1 ea 1 ea DAILY PRN MISC Per rx protocol 03/20/17 07:30 04/19/17 07:29 Vancomycin HCl/ Dextrose (Vancomycin 1250mg/D5W 250ml) 250 ml @ 166.667 mls/hr Q8HR@0200,1000,1800 IVPB 03/20/17 18:00 03/25/17 17:59 03/23/17 10:22 Allergies: Coded Allergies: LAMOTRIGINE (Verified Allergy, Unknown, 03/20/17) SULFA (SULFONAMIDE ANTIBIOTICS) (Verified Allergy, Unknown, 03/20/17) ROS Limited/Unobtainable: No Constitutional: Reports: no symptoms HEENT: Reports: no symptoms Cardiovascular: Reports: no symptoms Respiratory: Reports: no symptoms Gastrointestinal/Abdominal: Reports: no symptoms Genitourinary: Reports: no symptoms Neurologic/Psychiatric: Reports: no symptoms Subjective 26 YO M admitted with abscess/cellulitis right calf. Cover for Int Med-Dr Brink.. C/O opiate withdrawl: Fever, Chills,nausea,vomiting, diarrhea Objective Last Vital Signs Date Time Temp Pulse Resp B/P Pulse Ox O2 Delivery O2 Flow Rate FiO2 03/23/17 16:30 97.9 70 20 133/77 97 Room Air Laboratory Tests Test 03/23/17 04:30 White Blood Count 6.3 K/UL (4.8-10.8) Red Blood Count 4.48 M/UL (4.70-6.10) L Hemoglobin 13.4 G/DL (14.2-18.0) L Hematocrit 39.3 % (42.0-52.0) L Mean Corpuscular Volume 88 FL (80-99) Mean Corpuscular Hemoglobin 29.9 PG (27.0-31.0) Mean Corpuscular Hemoglobin Concent 34.1 G/DL (32.0-36.0) Red Cell Distribution Width 13.3 % (11.6-14.8) Platelet Count 329 K/UL (150-450) Mean Platelet Volume 7.2 FL (6.5-10.1) Neutrophils (%) (Auto) 47.7 % (45.0-75.0) Lymphocytes (%) (Auto) 36.7 % (20.0-45.0) Monocytes (%) (Auto) 8.1 % (1.0-10.0) Eosinophils (%) (Auto) 6.1 % (0.0-3.0) H Basophils (%) (Auto) 1.4 % (0.0-2.0) Sodium Level 138 mEQ/L (135-145) Potassium Level 3.4 mEQ/L (3.4-4.9) Chloride Level 103 mEQ/L (98-107) Carbon Dioxide Level 23 mEQ/L (20-30) Anion Gap 12 (5-15) Blood Urea Nitrogen 9 mg/dL (7-23) Creatinine 0.7 mg/dL (0.7-1.2) Estimat Glomerular Filtration Rate > 60 mL/min (>60) Glucose Level 84 mg/dL (74-106) Calcium Level 8.9 mg/dL (8.6-10.2) Intake and Output 03/22/17 03/23/17 19:00 07:00 Intake Total 711.667 ml Balance 711.667 ml Intake Oral 240 ml IV Total 471.667 ml # Voids 2 # Bowel Movements 1 Objective General Appearance: WD/WN, no apparent distress, alert EENT: PERRL/EOMI, normal ENT inspection, TMs normal Neck: non-tender, normal alignment, supple, normal inspection Cardiovascular: normal peripheral pulses, normal rate, regular rhythm, no gallop/murmur, no JVD Respiratory/Chest: chest wall non-tender, lungs clear, normal breath sounds, no respiratory distress, no accessory muscle use Abdomen: normal bowel sounds, non tender, soft, no organomegaly, no mass Neurologic: certified cytotechnologist II-XII grossly normal Skin: normal pigmentation, warm/dry, other - erythema right calf Assessment/Plan Problem List: (1) Abscess of right lower leg Assessment & Plan: Methicillin resistant Staph Aureus. Cont vanco and ceftriaxone-see ID note. (2) Opiate dependence (3) Opiate withdrawal Assessment & Plan: Start prn phenobarbital; Await subutex approval by pharmacy (4) Methamphetamine abuse (5) Bipolar depression Assessment & Plan: Continue zoloft and seroquel. (6) Cellulitis of right leg Assessment & Plan: Cont vanco and ceftriaxone. Status: progressing Assessment/Plan Discharge to [facility] DUGLAS EVANS Mar 23, 2017 17:25
[2017-03-23 19:57] VITALS: BP 132/70
[2017-03-24] VITALS: BP 136/70
[2017-03-24] MEDS: Vancomycin 1250mg/D5W 250ml 250 ML IVPB SCH ×2 (02:31→10:04)
[2017-03-24 04:00] VITALS: BP 118/69
[2017-03-24] MEDS: Heparin 5000 units/ml inj SUBQ SCH ×2 (05:25→14:00)
[2017-03-24 07:25] LABS: BASOPHILS % (AUTO) 1.4 % (0.0-2.0); EOSINOPHILS % (AUTO) 5.4 % (0.0-3.0); LYMPHOCYTES % (AUTO) 32.7 % (20.0-45.0); MEAN CORPUSCULAR HEMOGLOBIN 29.5 PG (27.0-31.0); MEAN CORPUSCULAR HGB CONC 33.8 G/DL (32.0-36.0); MEAN CORPUSCULAR VOLUME 87 FL (80-99); MEAN PLATELET VOLUME 6.9 FL (6.5-10.1); MONOCYTES % (AUTO) 7.1 % (1.0-10.0); NEUTROPHILS % (AUTO) 53.4 % (45.0-75.0); PLATELET COUNT 368 K/UL (150-450); RED BLOOD COUNT 4.62 M/UL (4.70-6.10); RED CELL DISTRIBUTION WIDTH 13.4 % (11.6-14.8); WHITE BLOOD COUNT 7.5 K/UL (4.8-10.8)
[2017-03-24 07:53] LABS: ANION GAP 13 (5-15); CALCIUM 9.4 mg/dL (8.6-10.2); CARBON DIOXIDE 25 mEQ/L (20-30); CHLORIDE 103 mEQ/L (98-107); CREATININE 0.7 mg/dL (0.7-1.2); GLOMERULAR FILTRATION RATE > 60 mL/min (>60); HEMOLYSIS 3; POTASSIUM 3.4 mEQ/L (3.4-4.9); SODIUM 141 mEQ/L (135-145)
[2017-03-24 08:17] VITALS: BP 130/71
[2017-03-24] MEDS: Sertraline 100mg tab ORAL SCH (08:48)
[2017-03-24] MEDS: cefTRIAXone 1 GM in D5W 55 ML IVPB SCH (08:48)
[2017-03-24 11:41] VITALS: BP 150/86
[2017-03-24] MEDS ORDERED: DOXYCYCLINE HY100 M2 PO (12:55)
[2017-03-24] MEDS ORDERED: SUBOXONE 8 MG-1 EACH SL (12:58)
[2017-03-24] MEDS ORDERED: NS 275ml ONE (14:19)
--- NOTE | 2017-03-24 14:28 | Pulmonology Progress Note ---
Assessment/Plan Problems: (1) Cellulitis of right leg (2) Abscess of right lower leg (3) Opiate withdrawal Assessment/Plan improving wound care check cultures dc planning Subjective ROS Limited/Unobtainable: No Constitutional: Reports: no symptoms HEENT: Repors: no symptoms Respiratory: Reports: no symptoms Cardiovascular: Reports: no symptoms Allergies: Coded Allergies: LAMOTRIGINE (Verified Allergy, Unknown, 03/20/17) SULFA (SULFONAMIDE ANTIBIOTICS) (Verified Allergy, Unknown, 03/20/17) Objective Last 24 Hour Vital Signs Date Time Temp Pulse Resp B/P Pulse Ox O2 Delivery O2 Flow Rate FiO2 03/24/17 11:41 98.2 72 19 150/86 96 Room Air 03/24/17 08:17 97.0 64 19 130/71 98 Room Air 03/24/17 04:00 97.0 55 19 118/69 96 Room Air 03/24/17 00:00 97.0 58 20 136/70 99 Room Air 03/23/17 19:57 98.2 65 20 132/70 97 Room Air 03/23/17 16:53 97.9 03/23/17 16:30 97.9 70 20 133/77 97 Room Air Intake and Output 03/23/17 03/24/17 19:00 07:00 Intake Total 820 ml 250.000 ml Balance 820 ml 250.000 ml Intake Oral 820 ml IV Total 250.000 ml # Voids 2 # Bowel Movements 1 Objective General Appearance: WD/WN HEENT: normocephalic Respiratory/Chest: chest wall non-tender, lungs clear Breasts: no masses Cardiovascular: normal peripheral pulses Abdomen: normal bowel sounds, soft, non tender Genitourinary: normal external genitalia Skin: no rash Laboratory Tests 03/24/17 06:32: White Blood Count 7.5, Red Blood Count 4.62L, Hemoglobin 13.6L, Hematocrit 40.3L , Mean Corpuscular Volume 87, Mean Corpuscular Hemoglobin 29.5, Mean Corpuscular Hemoglobin Concent 33.8, Red Cell Distribution Width 13.4, Platelet Count 368, Mean Platelet Volume 6.9, Neutrophils (%) (Auto) 53.4, Lymphocytes (% ) (Auto) 32.7, Monocytes (%) (Auto) 7.1, Eosinophils (%) (Auto) 5.4H, Basophils (%) (Auto) 1.4, Sodium Level 141, Potassium Level 3.4, Chloride Level 103, Carbon Dioxide Level 25, Anion Gap 13, Blood Urea Nitrogen 9, Creatinine 0.7, Estimat Glomerular Filtration Rate > 60, Glucose Level 81, Calcium Level 9.4 ALBINO KUMAR Mar 24, 2017 14:28
--- NOTE | 2017-03-25 07:38 | Discharge Summary ---
Discharge Summary Hospital Course Date of Admission Mar 20, 2017 at 04:00 Date of Discharge Mar 24, 2017 at 14:20 Admitting Diagnosis HPI Miguelito King is a 26 year old male who was admitted on Mar 20, 2017 at 04:00 for Cellulitis Right Leg Hospital Course dc summary #[id number] Discharge Medications Continued Medications: Buprenorphine Hcl/Naloxone Hcl* (Suboxone 8 Mg-2 Mg Sl Film*) 1 Each Film 1 EACH SL DAILY PRN for withdrawal symptoms, FILM Doxycycline Hyclate (Doxycycline Hyclate) 100 Mg Capsule 100 MG PO BID for 7 Days, CAP Discontinued Medications: Clindamycin Hcl* (Clindamycin Hcl*) 150 Mg Capsule 300 MG ORAL FOUR TIMES A DAY for 10 Days, CAP Discharge Condition Upon Discharge: stable Discharge Disposition Patient was discharged to Home ()-[facility] Discharge Diagnoses: Discharge Instructions Discharge Instructions Special Instructions I have been assigned to complete a D/C Summary on this account. I was not involved in the patient management Nicole Love NP ([facility]) Mar 25, 2017 07:38
--- NOTE | 2017-03-25 08:31 | Discharge Summary 2 SIG ---
DATE OF ADMISSION: 03/20/2017 DATE OF DISCHARGE: 03/24/2017 REASON FOR ADMISSION: The patient is a 26-year-old male, initially presented to [facility] for redness and swelling of the right calf, was given oral clindamycin and sent home. However, pain and swelling of the right calf increased and area of redness was expanding. The patient came back to [facility] on 03/19/2017. He denies fevers, chills He denies trauma, injury, infection to right lower extremity. Since he failed oral clindamycin therapy , he was transferred to [facility] for further insurance purposes. ADMITTING DIAGNOSIS 1. Right lower extremity abscess, self draining. 2. Right lower extremity cellulitis. HOSPITAL STAY: The patient WAS admitted. Venous duplex bilateral lower extremities was negative for acute DVT. Abscess in the right calf was draining on its own. The patient started on empiric antibiotics. ID was consulted. Blood cultures were negative. Wound culture grew MRSA. The patient was on the IV antibiotics. No fevers. No leukocytosis. Antibiotics subsequently changed to oral doxycycline prior to discharge. The patient was encouraged to comply with the medication regimen post- discharge. Pain was addressed, managed and controlled. The patient with a history of polysubstance abuse including intravenous heroine and methamphetamine abuse. The patient was counseled on avoidance of street drugs. Patient was offered a referral to drug program, which he declined at this time. HIV status was negative. Hepatitis panel positive for hepatitis B antibody, which conferred immunity. Wound care provided as per wound nurse recommendation. Zoloft and Seroquel resumed for bipolar depression. The patient was stable for discharge to [facility]. DISCHARGE DIAGNOSES: 1. Right lower extremity abscess, self draining. 2. Right lower extremity cellulitis. 3. Polysubstance abuse (methamphetamine, heroin, opiates). 4. Bipolar depression. DISCHARGE MEDICATIONS: See medication reconciliation list. DISCHARGE INSTRUCTIONS: The patient was discharged to [facility]. Follow up with the primary medical doctor. The patient was encouraged to comply with medication regimen and complete oral antibiotic regimen as prescribed. Dave Cuba, M.D. I have been assigned to dictate discharge summary on this account and I was not involved in the patient's management. Nicole Love N.P. ([place]te[place]) DR: SERGIO JOB#: [id number] CC: TRACY
[2017-03-25 10:58] LABS: HEPATITIS C VIRUS AB/CEDARS 0.8 S/CO (<0.80)
--- NOTE | 2017-03-27 19:29 | Diagnostic Imaging Report ---
APPROVED REPORT CPT Code: 36421 Present Symptoms Comments: Abscess BILATERAL: Imaging reveals a patent deep venous system bilaterally. There is no evidence of thrombus within the femoral, popliteal or tibial segments. The greater saphenous veins are also within normal limits. Doppler indicates normal spontaneous flow within these segments.
== END 2017-03-24 14:20 | disposition home or self-care (01) | DRG 603 ==
LOC: 4W 04:00 → 4E 03-23 15:10
DX: L02.415 Cutaneous abscess of right lower limb (principal); F19.239 Other psychoactive substance dependence with withdrawal, unspecified; F31.89 Other bipolar disorder; L03.115 Cellulitis of right lower limb; Z88.2 Allergy status to sulfonamides; F17.200 Nicotine dependence, unspecified, uncomplicated; F15.10 Other stimulant abuse, uncomplicated
CPT/HCPCS: 36415; 80048; 80053; 80202; 83735; 84100; 85025; 86703; 86704; 86803; 87040; 87070; 87181; 87205; 87340; 87517; 93970